=== PATIENT | female | born 1955 | race Caucasian/White ===

== ENCOUNTER 2017-01-05 19:04 | Emergency (ER) | payer MEDICAID | END 2017-01-05 21:07 | disposition home or self-care (01) | LOC: D.ER 19:04 | DX: M79.601 Pain in right arm (principal); W19.XXXA Unspecified fall, initial encounter; Y93.89 Activity, other specified; Y92.89 Other specified places as the place of occurrence of the external cause; J44.9 Chronic obstructive pulmonary disease, unspecified; M50.30 Other cervical disc degeneration, unspecified cervical region; I10 Essential (primary) hypertension; F17.200 Nicotine dependence, unspecified, uncomplicated ==

== ENCOUNTER → 2017-03-18 13:43 | Outpatient (CLI) | payer MEDICAID | END | disposition home or self-care (01) | LOC: D.MAMMO 10:45 | DX: Z12.31 Encounter for screening mammogram for malignant neoplasm of breast (principal) ==

== ENCOUNTER 2018-01-04 15:28 | Emergency (ER) | payer MEDICAID ==
[2018-01-04] MEDS ORDERED: PHENERGAN25 M1 PO (17:34)
[2018-01-04] MEDS ORDERED: TOPAMAX50 MG PO (17:35)
[2018-01-04] MEDS ORDERED: ZESTORETIC 10/11 TAB PO (17:35)
[2018-01-04] MEDS ORDERED: NEURONTIN 400400 MG PO (17:35)
[2018-01-04] MEDS ORDERED: PROAIR HFA8.5 GM INH (17:36)
[2018-01-04] MEDS ORDERED: HYDROCODONE-APA1 TAB PO (17:36)
[2018-01-04] MEDS ORDERED: AMBIEN10 MG PO (17:36)
[2018-01-04] MEDS ORDERED: XANAX0.25 MG PO (17:36)
== END 2018-01-04 16:11 | disposition left against medical advice (07) ==
LOC: D.ER 15:28
DX: R07.81 Pleurodynia (principal); H92.01 Otalgia, right ear; I10 Essential (primary) hypertension; J44.9 Chronic obstructive pulmonary disease, unspecified; F17.200 Nicotine dependence, unspecified, uncomplicated; Y04.2XXA Assault by strike against or bumped into by another person, initial encounter; Y93.89 Activity, other specified; Y92.019 Unspecified place in single-family (private) house as the place of occurrence of the external cause

== ENCOUNTER 2018-01-04 17:28 | Emergency (ER) | payer MEDICAID ==
[~2018-01-04] VITALS: Ht 162.6 cm; Wt 40.9 kg
[2018-01-04 17:32] VITALS: Ht 162.6 cm; Wt 40.9 kg
[2018-01-04] MEDS ORDERED: PHENERGAN25 M1 PO (17:34)
[2018-01-04] MEDS ORDERED: ZESTORETIC 10/11 TAB PO (17:35)
[2018-01-04] MEDS ORDERED: TOPAMAX50 MG PO (17:35)
[2018-01-04] MEDS ORDERED: NEURONTIN 400400 MG PO (17:35)
[2018-01-04] MEDS ORDERED: PROAIR HFA8.5 GM INH (17:36)
[2018-01-04] MEDS ORDERED: AMBIEN10 MG PO (17:36)
[2018-01-04] MEDS ORDERED: XANAX0.25 MG PO (17:36)
[2018-01-04] MEDS ORDERED: HYDROCODONE-APA1 TAB PO (17:36)
[2018-01-04 20:25] VITALS: BP 120/62
== END 2018-01-04 20:29 | disposition home or self-care (01) ==
LOC: D.ER 17:28
DX: R07.81 Pleurodynia (principal); H92.01 Otalgia, right ear; I10 Essential (primary) hypertension; J44.9 Chronic obstructive pulmonary disease, unspecified; Y04.2XXA Assault by strike against or bumped into by another person, initial encounter; Y93.89 Activity, other specified; Y92.019 Unspecified place in single-family (private) house as the place of occurrence of the external cause

== ENCOUNTER → 2018-03-24 19:33 | Outpatient (CLI) | payer MEDICAID ==
[2018-01-04 17:32] VITALS: BMI 15.4
[~2018-03-24 19:33] MED LIST: AMBIEN10 MG PO; HYDROCODONE-APA1 TAB PO; NEURONTIN 400400 MG PO; PHENERGAN25 M1 PO; PROAIR HFA8.5 GM INH; TOPAMAX50 MG PO; XANAX0.25 MG PO; ZESTORETIC 10/11 TAB PO
== END | disposition home or self-care (01) ==
LOC: D.LABREF 19:33
DX: R19.7 Diarrhea, unspecified (principal)

== ENCOUNTER 2018-08-09 14:51 | Inpatient (IN) | payer MEDICARE ==
[~2018-08-09] VITALS: Ht 162.6 cm; Wt 43.5 kg
[2018-08-09] MEDS ORDERED: OMEPRAZOLE20 M1 PO (15:08)
[2018-08-09] MEDS ORDERED: PEPCID AC20 MG PO (15:08)
[2018-08-09] MEDS ORDERED: ASACOL HD800 MG PO (15:09)
[2018-08-09 16:02] LABS: ALBUMIN 2.8 g/dL (3.4-5.0); BILIRUBIN - TOTAL 0.36 mg/dL (0.2-1.3); CALCIUM 9.6 mg/dL (8.5-10.1); PROTEIN - SERUM 8.6 g/dL (6.4-8.2)
[2018-08-09 16:13] LABS: ANION GAP 11.5 mmol/L (8-16); POTASSIUM - SERUM 1.5 mmol/L (3.5-5.1)
[2018-08-09 16:25] LABS: HEMATOCRIT 42.4 % (36.0-48.0); MCH 30.5 pg (26.0-34.0); MCHC 35.4 g/dL (31.0-37.0); MCV 86.2 fL (80.0-100.0); MEAN PLATELET VOLUME 10.3 fL (7.4-10.4); PLATELET COUNT 406 10x3/uL (130-400); RBC 4.92 10x6/uL (4.00-5.40); RDW 12.9 % (11.5-14.5); WBC 22.3 10x3/uL (4.8-10.8)
[2018-08-09 16:58] LABS: EOSINOPHILS 1 % (0-7); LYMPHOCYTES 15 % (15-50); MONOCYTES 6 % (2-11); NEUTROPHILS 77 % (40-80)
[2018-08-09 17:02] LABS: PLATELET ESTIMATE INCREASED
[2018-08-09 17:03] LABS: TEAR DROP CELLS 1+
--- NOTE | 2018-08-09 17:06 | NUR ---
PT C/O POTASSIUM BURNING, RATE DECREASED TO 75ML/HR
--- NOTE | 2018-08-09 17:21 | MORECARE ---
CASE MANAGEMENT DISCHARGE SUMMARY PATIENT: PIETER CONTRERAS UNIT: [id number] ADM DATE: 08/09/18 AGE: 62 : 53 SEX: F ROOM/BED: D.2224 AUTHOR: JUSTUS WALTON PHYSICIAN: REFERRING PHYSICIAN: SRAVAN JAY MD DATE OF SERVICE: 08/09/18 Discharge Plan Patient Name: PIETER CONTRERAS [facility] [facility] 1955 Planned Disposition: Home Anticipated Discharge Date: 08/11/18 Discharge Date: Expected LOS: 2 Initial Reviewer: [email or web address] Initial Review Date: 08/09/2018 Generated: 08/09/18 6:20 pm Patient Name: PIETER CONTRERAS Page 34479 at 1721 All edits/amendments must be made on the electronic document DICTATION DATE: 08/09/181719 REGULATORY AFFAIRS STRATEGY SPECIALIST: MARGARET 08/09/181719 RPT#: [id number] DC DATE: STATUS: ADM IN [facility] [address] [place] [address] END OF REPORT
--- NOTE | 2018-08-09 17:28 | MORECARE ---
CASE MANAGEMENT DISCHARGE SUMMARY PATIENT: PIETER CONTRERAS UNIT: [id number] ADM DATE: 08/09/18 AGE: 62 : 53 SEX: F ROOM/BED: D.2224 AUTHOR: ISABELLE,DOC PHYSICIAN: REFERRING PHYSICIAN: SRAVAN JAY MD DATE OF SERVICE: 08/09/18 Discharge Plan Patient Name: PIETER CONTRERAS Facility: [facility]:[place] : 1955 Planned Disposition: Home Anticipated Discharge Date: 08/11/18 Discharge Date: Expected LOS: 2 Initial Reviewer: [email or web address] Initial Review Date: 08/09/2018 Generated: 08/09/18 6:28 pm DCP- Discharge Planning Updated by [email or web address]: Lamar Robledo on 08/09/18 4:[address] Patient Name: PIETER CONTRERAS Admission Status: ER Accout number: [id number] Admission Date: 08-09-2018 : 1955 Admission Diagnosis: Attending: SRAVAN JAY Current LOS: 1 Anticipated DC Date: 08-11-2018 Planned Disposition: Home Primary Insurance: MEDICARE A & B Discharge Planning Comments: CM met with patient to complete initial dc planning assessment. CM educated patient on the CM role and verbal consent given by patient to complete assessment. Patient lives at home alone and reports she is independent in her care. At discharge patient plans to return home and feels this is a safe discharge. CM discussed availability of home health, rehab services, and medical equipment. Patient denied known discharge needs at this time. CM will continue to follow and will assist as needed with dc plans/needs. Flatbed Truck Driver: Lamar Robledo RN, [facility] DCPIA - Discharge Planning Initial Assessment Updated by [email or web address]: Lamar Robledo on 08/09/18 5:23 pm * Is the patient Alert and Oriented? Yes * How many steps to enter\exit or inside your home? * PCP Dr. Jay * Pharmacy [facility] * Preadmission Environment Home Alone * ADLs Independent * Equipment None * List name and contact numbers for known caregivers / representatives who currently or will assist patient after discharge: [facility] - [phone] * Verbal permission to speak to the caregivers and representatives has been obtained from the patient. Yes * Community resources currently utilized None * Additional services required to return to the preadmission environment? No * Can the patient safely return to the preadmission environment? Yes * Has this patient been hospitalized within the prior 30 days at any hospital? No Last DP export: 08/09/18 4:21 p Patient Name: PIETER CONTRERAS Page [phone] at 1728 All edits/amendments must be made on the electronic document DICTATION DATE: 08/09/181726 HEAD CORRECTION OFFICER: MARGARET 08/09/181726 RPT#: [id number] DC DATE: STATUS: ADM IN [facility] [address] [place] [address] END OF REPORT
--- NOTE | 2018-08-09 17:36 | NUR ---
NS AND K RIDER CONTINUED TO FLOOR
--- NOTE | 2018-08-09 18:14 | NUR ---
PT ARRIVED TO THE UNIT TO ROOM 2224, ORINETATED TO ROOM CL IN REACH NO NEEDS EXPRESSED
--- NOTE | 2018-08-09 18:45 | NUR ---
I have reviewed this patient and I concur with the Shift Assessment completed by the Licensed Practical Nurse today this shift.
[2018-08-09 20:00] VITALS: BP 116/63
--- NOTE | 2018-08-09 20:30 | NUR ---
ADMISSION ASSESSMENT COMPLETE AND HISTORY REVIEWED. KCL RIDERS INFUSING. NO NEEDS. WILL CONTINUE TO MONITOR.
[2018-08-09 21:32] LABS: CALC OSMOLALITY 269 mosm/kg (275-300); CALCIUM 8.1 mg/dL (8.5-10.1); CARBON DIOXIDE 31.4 mmol/L (21.0-32.0); CHLORIDE - SERUM 95 mmol/L (98-107); GLUCOSE 108 mg/dL (74-106); SODIUM 131 mmol/L (136-145); UREA NITROGEN 29 mg/dL (7-18)
[2018-08-09 21:35] LABS: CREATININE - SERUM 0.7 mg/dL (0.6-1.3); eGFR NON AFRICAN AMERICAN 89 mL/min (90-120)
[2018-08-09 21:36] LABS: POTASSIUM - SERUM 1.6 mmol/L (3.5-5.1)
--- NOTE | 2018-08-09 22:20 | NUR ---
REDRAW POTASSIUM 1.6 - GIVING KCL 10 MEQ RIDER Q1H X6. PUT IN ORDER PER ELECTROLYTE PROTOCOL. PT RECEIVING 6 NOW.
[2018-08-09 23:18] VITALS: BP 107/40; BMI 14.1
[2018-08-10 04:00] VITALS: BP 118/62
[2018-08-10 07:06] LABS: CALCIUM 8.1 mg/dL (8.5-10.1); CARBON DIOXIDE 29.2 mmol/L (21.0-32.0); CHLORIDE - SERUM 97 mmol/L (98-107); CREATININE - SERUM 0.8 mg/dL (0.6-1.3); GLUCOSE 90 mg/dL (74-106); MAGNESIUM - SERUM 2.2 mg/dL (1.8-2.4); SODIUM 135 mmol/L (136-145); eGFR NON AFRICAN AMERICAN 76 mL/min (90-120)
[2018-08-10 07:48] LABS: CALC OSMOLALITY 272 mosm/kg (275-300); UREA NITROGEN 21 mg/dL (7-18)
--- NOTE | 2018-08-10 08:46 | NUR ---
PT RESTING IN BED. NO ACUTE DISTRESS NOTED. PT NOTED TO BE DROWSY. BP 110/60 AT THIS TIME. SALINE LOC TO LEFT WRIST INTACT AND PATENT. DENIES PAIN AT THIS TIME. DENIES FURTHER NEEDS PRESENTLY. CL WITHIN REACH. ENCORUAGED TO CALL WITH NEEDS. CONTINUE POC
[2018-08-10 09:31] VITALS: BP 97/56
[2018-08-10 13:00] VITALS: BP 109/52
[2018-08-10 14:58] VITALS: BMI 14.0
[2018-08-10 18:57] VITALS: BP 104/48
[2018-08-10 20:00] VITALS: BP 118/52
[2018-08-11 05:24] LABS: BASOPHILS 0.1 % (0-2); EOSINOPHILS 0.7 % (0-7); IMMATURE GRANULOCYTES 0.9 % (0-5); LYMPHOCYTES 11.5 % (15-50); MCHC 33.9 g/dL (31.0-37.0); MEAN PLATELET VOLUME 9.6 fL (7.4-10.4); MONOCYTES 6.4 % (2-11); NEUTROPHILS 80.4 % (40-80); RDW 13.4 % (11.5-14.5)
[2018-08-11 05:38] LABS: HEMATOCRIT 33.3 % (36.0-48.0); HEMOGLOBIN 11.3 g/dL (12-16); MCV 88.3 fL (80.0-100.0); PLATELET COUNT 304 10x3/uL (130-400); RBC 3.77 10x6/uL (4.00-5.40); WBC 16.3 10x3/uL (4.8-10.8)
[2018-08-11 05:44] LABS: CALC OSMOLALITY 276 mosm/kg (275-300); CALCIUM 7.9 mg/dL (8.5-10.1); CARBON DIOXIDE 27.9 mmol/L (21.0-32.0); CHLORIDE - SERUM 103 mmol/L (98-107); CREATININE - SERUM 0.6 mg/dL (0.6-1.3); GLUCOSE 102 mg/dL (74-106); SODIUM 138 mmol/L (136-145); UREA NITROGEN 16 mg/dL (7-18); eGFR NON AFRICAN AMERICAN > 90 mL/min (90-120)
[2018-08-11 06:20] LABS: POTASSIUM - SERUM 2.8 mmol/L (3.5-5.1)
--- NOTE | 2018-08-11 07:40 | NUR ---
PT RESTING IN BED. FAMILY AT BEDSIDE. RESP EVEN AND UNLABORED. 02 @ 2L NC IN PLACE. DENIES PAIN AT THIS TIME. IV TO LEFT WRIST WITH PROCALAMINE @ 50ML/HR INFUSING VIA PUMP. SITE WITHOUT REDNESS OR EDEMA. DENIES FURTHER NEEDS AT THIS TIME. CL WITHIN REACH. ENCOURAGED TO CALL WITH NEEDS. CONTINUE POC
[2018-08-11 09:36] VITALS: BP 100/52
[2018-08-11 14:16] VITALS: BP 195/82
[2018-08-11 18:04] VITALS: BP 106/55
[2018-08-11 20:00] VITALS: BP 140/68
--- NOTE | 2018-08-11 20:00 | NUR ---
ASSESSMENT PER FLOWSHEET. PCXR DONE AT 1930. IV PATENT LEFT WRIST WITH PROCAL AT 50CC'S/HR AND ANTBIOTIC OF ZITHROMAX HANGING. FAMILY AT BEDSIDE. O2 ON AT 2 L/M PER NC.
--- NOTE | 2018-08-11 21:15 | NUR ---
MEDS GIVEN PO WITH SODA. MEDS PER JUL. SR UP X2 CALL LIGHT WITHIN EACH. UP WITH HELP TO BR VOIDS. ASSISTED BACK TO BED PATIENT VERY WEAK.
--- NOTE | 2018-08-11 23:30 | NUR ---
VS TAKEN BY SHEET ROCK FINISHER. INFF=731.9. NOTIFIED DR. JAY ORDERS REC'D.
--- NOTE | 2018-08-11 23:45 | NUR ---
CHIEF DEPUTY CLERK/BAILIFF HERE FLU SWAB DONE BY NURSE. LAB DRAWN FOR BLOOD CULTURES X2.
[2018-08-12] VITALS: BP 115/54
--- NOTE | 2018-08-12 00:15 | NUR ---
IN AND OUT CATH DONE UNDER OVERHEAD CRANE OPERATOR. UA SPECIMEN OBTAINED AND SENT TO LAB. FOR CULTURE. TYLENOL 650 MG PO GIVEN FOR FEVER ELEVATION. T=103 NOW.
--- NOTE | 2018-08-12 00:55 | NUR ---
FLU RESULTS CAME BACK (-). PRIOR CXR SHOWS SOME INPROVEMENT.
--- NOTE | 2018-08-12 03:27 | NUR ---
RESTING AT THIS TIME. WILL RECHECK VITAL SIGNS IE TEMP AT 0400
[2018-08-12 04:00] VITALS: BP 93/52
[2018-08-12 07:10] LABS: BASOPHILS 0.2 % (0-2); EOSINOPHILS 2.2 % (0-7); HEMATOCRIT 33.2 % (36.0-48.0); IMMATURE GRANULOCYTES 1.3 % (0-5); LYMPHOCYTES 18.2 % (15-50); MCH 29.6 pg (26.0-34.0); MCHC 33.1 g/dL (31.0-37.0); MCV 89.5 fL (80.0-100.0); MEAN PLATELET VOLUME 9.7 fL (7.4-10.4); MONOCYTES 8.2 % (2-11); NEUTROPHILS 69.9 % (40-80); PLATELET COUNT 260 10x3/uL (130-400); RBC 3.71 10x6/uL (4.00-5.40); RDW 13.7 % (11.5-14.5)
[2018-08-12 07:12] LABS: WBC 11.5 10x3/uL (4.8-10.8)
[2018-08-12 07:26] LABS: CALCIUM 8.4 mg/dL (8.5-10.1); CARBON DIOXIDE 26.7 mmol/L (21.0-32.0); CHLORIDE - SERUM 106 mmol/L (98-107); CREATININE - SERUM 0.5 mg/dL (0.6-1.3); GLUCOSE 113 mg/dL (74-106); SODIUM 138 mmol/L (136-145); eGFR NON AFRICAN AMERICAN > 90 mL/min (90-120)
[2018-08-12 07:27] LABS: CALC OSMOLALITY 279 mosm/kg (275-300); POTASSIUM - SERUM 4.1 mmol/L (3.5-5.1); UREA NITROGEN 22 mg/dL (7-18)
--- NOTE | 2018-08-12 07:50 | NUR ---
PT LYING IN BED, EYES CLSOED EVEN RISE AND FALL OF CHEST NO SIGNS OF LABORED BREATHING. BED IN LOW POSITION CL IN REACH PT FAMILY AT BEDSIDE, CONTINUE WITH PLAN OF CARE
[2018-08-12 08:55] VITALS: BP 96/50
--- NOTE | 2018-08-12 12:15 | NUR ---
NUTRITION F/U PT SLEEPING, ONLY ~ 25% INTAKE MEALS. ENSURE WITH MEALS. PROCALAMINE @ 50 CC/HR. WILL CONTINUE TO PROVIDE ENSURE, DIET. MONITOR PO INTAKE. RD FOLLOWING
--- NOTE | 2018-08-12 13:18 | NUR ---
PT SITTING UP IN BED STATES THAT SHE IS COLD AND SHIVERING. PT TEMP IS 99.1 PT REQUESTED TO HAVE TYLENOL, ADMINISTERED PRN TYLENOL ALONG WITH SCHEDULED MEDS PER JUL. CONTINUE WITH PLAN OF CARE
[2018-08-12 13:38] VITALS: BP 126/32
--- NOTE | 2018-08-12 15:41 | NUR ---
WENT TO ADMINISTER 3 [place] MEDS PER JUL, PT EXTREMELY SLEEPY, HAD TO SHAKE PT TO WAKE UP AND OPEN HER EYES TO TAKE MEDICATIONS, PT, PT GRANDDAUGHTER IN ROOM STATED PT WAS SLEEPY WELL AFTER TYLENOL YESTERDAY AND SLEPT ALL NIGHT, PT ABLE TO TAKE MDS AND SWALLOW EACH, CHECKED PTS MOUTH FOR PILLS WITH FINGER SWOOP, CONTINUE WITH PLAN OF CARE
[2018-08-12 16:28] VITALS: BP 106/31
--- NOTE | 2018-08-12 17:13 | NUR ---
PT LYING IN BED ASLEEP, FAMILY AT BEDISDE, PT IS EASILY AWAKENED AND GOES RIGHT BACK TO SLEEP, NO SIGNS OF DISTRESS CONTINUE WITH PLAN OF CARE
--- NOTE | 2018-08-12 18:44 | NUR ---
PT SITTING UP IN BED EATING WITH GRANDCHILD AT BEDSIDE, MORE AWAKE THAN AT LUNCH, NO NEEDS VOICED, CONTINUE WITH PLAN OF CARE
[2018-08-12 20:00] VITALS: BP 107/58
--- NOTE | 2018-08-12 20:00 | NUR ---
ASSESSMENT PER FLOWSHEET. IV PATENT LEFT WRIST OF PROCAL AT 50CC'S/HR. O2 ON 2L/M PER NC. NO RESPIRATORY DISTRESS. FAMILY MEMBER AT BEDSIDE. SR UP X2 CALL LIGHT WITHIN REACH. EYES CLOSED RESPIRATIONS WITH EASE AND UNLABORED. AROUSES EASILY TO VERBAL STIMULI.
--- NOTE | 2018-08-12 21:30 | NUR ---
MEDS GIVEN PER MAR. EILEEN MILLAN DUE TO INCREASED DROWSINESS.
--- NOTE | 2018-08-13 00:43 | NUR ---
EYES CLOSED ESPIRATIONS WITH EASE AND UNLABORED.
--- NOTE | 2018-08-13 03:59 | NUR ---
UP WITH HELP TO BR VOIDS WELL. ASSISTED BACK TO BED.SR UP X2 CALL LIGHT WITHIN REACH.
[2018-08-13 04:00] VITALS: BP 127/65
[2018-08-13 04:18] LABS: BASOPHILS 0.2 % (0-2); EOSINOPHILS 2.7 % (0-7); HEMATOCRIT 32.7 % (36.0-48.0); HEMOGLOBIN 10.8 g/dL (12-16); IMMATURE GRANULOCYTES 1.4 % (0-5); LYMPHOCYTES 14.2 % (15-50); MCH 29.8 pg (26.0-34.0); MCV 90.3 fL (80.0-100.0); MEAN PLATELET VOLUME 9.3 fL (7.4-10.4); NEUTROPHILS 74.5 % (40-80); PLATELET COUNT 276 10x3/uL (130-400); RBC 3.62 10x6/uL (4.00-5.40); RDW 14.1 % (11.5-14.5); WBC 10.6 10x3/uL (4.8-10.8)
[2018-08-13 04:27] LABS: CALC OSMOLALITY 273 mosm/kg (275-300); CALCIUM 8.4 mg/dL (8.5-10.1); CARBON DIOXIDE 28.1 mmol/L (21.0-32.0); CHLORIDE - SERUM 104 mmol/L (98-107); CREATININE - SERUM 0.6 mg/dL (0.6-1.3); GLUCOSE 105 mg/dL (74-106); POTASSIUM - SERUM 3.7 mmol/L (3.5-5.1); SODIUM 136 mmol/L (136-145); UREA NITROGEN 17 mg/dL (7-18); eGFR NON AFRICAN AMERICAN > 90 mL/min (90-120)
[2018-08-13 10:11] VITALS: BP 99/49
[2018-08-13 13:37] VITALS: BP 122/65
[2018-08-13 17:34] VITALS: BP 102/54
--- NOTE | 2018-08-13 18:51 | NUR ---
I have reviewed this patient and I concur with the Shift Assessment completed by the Licensed Practical Nurse today this shift.
--- NOTE | 2018-08-13 19:45 | NUR ---
PT SITTING UP IN BED W/O DISTRESS. BREATHING SHALLOW, SOB W/ EXERTION. O2 2L/NC. ASSISTED PT UP TO BATHROOM W/ MINIMAL ASSIST. HOLDING QHS AMBIEN BC PT IS DROWSY. BOTTOM IS REDDENED. IV RIGHT FA SL. IV LEFT FA INFUSING PROCAL @ 50 AND NS @ 10. SCDS ON. FALL PRECAUTIONS IN PLACE. BED ALARM ON. CL IN REACH, WILL CONT TO MONITOR
[2018-08-13 20:00] VITALS: BP 100/56
[2018-08-14] VITALS: BP 133/62
--- NOTE | 2018-08-14 00:15 | NUR ---
TEMP 100.2. GAVE TYLENOL ORDERED. RECHECKED TEMP HOUR LATER AND TEMP 97.6
--- NOTE | 2018-08-14 03:00 | NUR ---
ASSISTED PT UP TO BATHROOM FOURTH TIME TONIGHT. PT APPEARS TO BE WEAKER THAN BEFORE. MODERATE ASSIST NEEDED TO BATHROOM AND PT HARDLY ABLE TO STAND UP TO GET BACK TO BED WHEREAS PT PREVIOUSLY NEEDED STAND BY ASSIST FOR BALANCE. BEDSIDE COMMODE PROVIDED. PT HAD TO GET UP TO BATHROOM ONCE MORE AND TOLERATED GETTING TO BEDSIDE COMMODE WELL. WILL CONT TO MONITOR
[2018-08-14 04:00] VITALS: BP 105/58
[2018-08-14 04:24] LABS: BASOPHILS 0.1 % (0-2); EOSINOPHILS 1.4 % (0-7); HEMATOCRIT 30.2 % (36.0-48.0); HEMOGLOBIN 10.1 g/dL (12-16); IMMATURE GRANULOCYTES 1.1 % (0-5); LYMPHOCYTES 7.8 % (15-50); MCH 30.1 pg (26.0-34.0); MCHC 33.4 g/dL (31.0-37.0); MCV 89.9 fL (80.0-100.0); MEAN PLATELET VOLUME 9.4 fL (7.4-10.4); MONOCYTES 5.1 % (2-11); NEUTROPHILS 84.5 % (40-80); PLATELET COUNT 303 10x3/uL (130-400); RBC 3.36 10x6/uL (4.00-5.40); RDW 14.3 % (11.5-14.5)
[2018-08-14 04:38] LABS: CALC OSMOLALITY 276 mosm/kg (275-300); CALCIUM 8.3 mg/dL (8.5-10.1); CARBON DIOXIDE 25.4 mmol/L (21.0-32.0); CHLORIDE - SERUM 104 mmol/L (98-107); CREATININE - SERUM 0.5 mg/dL (0.6-1.3); GLUCOSE 110 mg/dL (74-106); POTASSIUM - SERUM 3.6 mmol/L (3.5-5.1); SODIUM 137 mmol/L (136-145); UREA NITROGEN 17 mg/dL (7-18); eGFR NON AFRICAN AMERICAN > 90 mL/min (90-120)
[2018-08-14 09:18] VITALS: BP 111/49
[2018-08-14 13:03] VITALS: BP 111/53
[2018-08-14 16:00] VITALS: BP 122/66
[2018-08-14 16:07] VITALS: Ht 162.6 cm; Wt 43.5 kg
--- NOTE | 2018-08-14 18:45 | NUR ---
I have reviewed this patient and I concur with the Shift Assessment completed by the Licensed Practical Nurse today this shift.
--- NOTE | 2018-08-14 19:00 | NUR ---
REPORT RECEIVED AND CARE OF PT ASSUMED. PT LYING IN HIGH CID'S POSITION VISITING WITH FAMILY MEMBERS. IV IN LEFT FA PATENT WITH PROCAL INFUSING AT 50 ML / HR. AND NS INFUSING AT 10 ML / HR. BED ALARM IN USE FOR SAFETY. SCD'S IN PLACE. WILL MONITOR FOR NEEDS.
[2018-08-14 20:00] VITALS: BP 104/61
--- NOTE | 2018-08-14 21:30 | NUR ---
HS MEDICATIONS GIVEN. HELD AMBIEN PT LETHARGIC ALREADY. WILL CONTINUE TO MONITOR FOR NEEDS.
[2018-08-15] VITALS: BP 146/74
[2018-08-15 03:00] VITALS: BP 119/63
[2018-08-15 05:09] LABS: BASOPHILS 0.3 % (0-2); EOSINOPHILS 2.8 % (0-7); HEMATOCRIT 29.3 % (36.0-48.0); HEMOGLOBIN 9.6 g/dL (12-16); IMMATURE GRANULOCYTES 2.4 % (0-5); LYMPHOCYTES 24.5 % (15-50); MCH 29.4 pg (26.0-34.0); MCHC 32.8 g/dL (31.0-37.0); MCV 89.9 fL (80.0-100.0); MEAN PLATELET VOLUME 9.6 fL (7.4-10.4); MONOCYTES 16.5 % (2-11); NEUTROPHILS 53.5 % (40-80); PLATELET COUNT 295 10x3/uL (130-400); RBC 3.26 10x6/uL (4.00-5.40); RDW 14.5 % (11.5-14.5)
[2018-08-15 05:13] LABS: WBC 7.5 10x3/uL (4.8-10.8)
[2018-08-15 05:18] LABS: CALC OSMOLALITY 281 mosm/kg (275-300); CALCIUM 8.4 mg/dL (8.5-10.1); CARBON DIOXIDE 24.2 mmol/L (21.0-32.0); CHLORIDE - SERUM 109 mmol/L (98-107); CREATININE - SERUM 0.4 mg/dL (0.6-1.3); GLUCOSE 94 mg/dL (74-106); SODIUM 141 mmol/L (136-145); UREA NITROGEN 16 mg/dL (7-18); eGFR NON AFRICAN AMERICAN > 90 mL/min (90-120)
--- NOTE | 2018-08-15 08:51 | NUR ---
PT SITTING UP IN BED EATING BREAKFAST, GRANDSON AT BEDSIDE, PER PT, SHE IS FEELING A LOT BETTER TODAY THAN SHE HAD BEEN, ADMINISTERED MEDS PER MAR, NO S/S OF DISTRESS, CL IN REACH ASSUME AND CONTINUE PLAN OF CARE
[2018-08-15 14:14] VITALS: BP 113/56
--- NOTE | 2018-08-15 15:18 | NUR ---
PT SITTING UP IN BED, GRANDSON AND DAUGHTER AT BEDSIDE, NO NEEDS VOICED, ASSISTED PT TO BSC. CL IN REACH CONTINUE WITH PLAN OF CARE
--- NOTE | 2018-08-15 15:43 | NUR ---
I have reviewed this patient and I concur with the Shift Assessment completed by the Licensed Practical Nurse today this shift.
[2018-08-15 17:53] VITALS: BP 113/54
--- NOTE | 2018-08-15 19:00 | NUR ---
REPORT RECEIVED AND CARE OF PT ASSUMED. PT LYING IN HIGH CID'S POSITION WITH EYES CLOSED. IV IN LEFT FA PATENT WITH PROCAL INFUSING AT 50 ML / HR; AND NS INFUSING AT 10 ML / HR. WILL MONITOR FOR NEEDS.
[2018-08-15 20:00] VITALS: BP 110/53
--- NOTE | 2018-08-15 20:53 | NUR ---
HS MEDICATIONS GIVEN. WILL CONTINUE TO MONITOR FOR NEEDS. HELD AMBIEN PT STILL LETHARGIC.
[2018-08-16] VITALS: BP 114/62
[2018-08-16 04:00] VITALS: BP 119/68
[2018-08-16 09:45] VITALS: BP 128/66
--- NOTE | 2018-08-16 10:34 | NUR ---
PT SITTING UP IN BED, STATED SHE FEELS BETTER, BED IN LOW POSITION, CL IN REACH NO FAMILY AT BEDSIDE, CONTINUE WITH PLAN OF CARE
[2018-08-16 13:46] VITALS: BP 120/89
--- NOTE | 2018-08-16 15:43 | NUR ---
I have reviewed this patient and I concur with the Shift Assessment completed by the Licensed Practical Nurse today this shift.
[2018-08-16 17:35] VITALS: BP 134/66
--- NOTE | 2018-08-16 19:00 | NUR ---
REPORT RECEIVED AND CARE OF PT ASSUMED. PT RESTING IN LOW CID'S POSITION WITH EYES CLOSED. IV IN RIGHT FA PATENT WITH PROCAL INFUSING AT 50 ML / HR AND NS INFUSING AT 10 ML / HR. SCD'S IN USE ON BLE. WILL MONITOR FOR NEEDS. CALL LIGHT WITHIN REACH.
[2018-08-16 20:00] VITALS: BP 134/70
--- NOTE | 2018-08-16 20:34 | NUR ---
HS MEDICATIONS GIVEN. WILL CONTINUE TO MONITOR FOR NEEDS.
--- NOTE | 2018-08-16 21:20 | NUR ---
COLLECTED SPUTUM SAMPLE FOR ORDERED CULTURE AND DELIVERED TO LAB.
[2018-08-17] VITALS: BP 127/64
--- NOTE | 2018-08-17 02:30 | NUR ---
ASSISTED PT WITH SPONGE BATH AND CHANGED ALL LINENS AND GOWN. POSITIONED IN BED FOR COMFORT AND RE-PLACED SCD'S. CALL LIGHT WITHIN REACH.
[2018-08-17 04:00] VITALS: BP 134/79
[2018-08-17 04:58] LABS: BASOPHILS 0.4 % (0-2); EOSINOPHILS 2.2 % (0-7); HEMATOCRIT 31.3 % (36.0-48.0); HEMOGLOBIN 10.2 g/dL (12-16); IMMATURE GRANULOCYTES 2.4 % (0-5); LYMPHOCYTES 30.3 % (15-50); MCH 29.8 pg (26.0-34.0); MCHC 32.6 g/dL (31.0-37.0); MCV 91.5 fL (80.0-100.0); MEAN PLATELET VOLUME 8.9 fL (7.4-10.4); MONOCYTES 14.4 % (2-11); NEUTROPHILS 50.3 % (40-80); PLATELET COUNT 345 10x3/uL (130-400); RBC 3.42 10x6/uL (4.00-5.40); RDW 15.1 % (11.5-14.5); WBC 7.1 10x3/uL (4.8-10.8)
[2018-08-17 05:08] LABS: CALC OSMOLALITY 277 mosm/kg (275-300); CALCIUM 8.8 mg/dL (8.5-10.1); CARBON DIOXIDE 27.3 mmol/L (21.0-32.0); CHLORIDE - SERUM 106 mmol/L (98-107); CREATININE - SERUM 0.4 mg/dL (0.6-1.3); GLUCOSE 90 mg/dL (74-106); POTASSIUM - SERUM 4.2 mmol/L (3.5-5.1); SODIUM 138 mmol/L (136-145); UREA NITROGEN 17 mg/dL (7-18); eGFR NON AFRICAN AMERICAN > 90 mL/min (90-120)
[2018-08-17 08:55] VITALS: BP 161/78
--- NOTE | 2018-08-17 09:52 | MORECARE ---
CASE MANAGEMENT DISCHARGE SUMMARY PATIENT: PIETER CONTRERAS UNIT: [id number] ADM DATE: 08/09/18 AGE: 62 : 53 SEX: F ROOM/BED: D.2224 AUTHOR: ISABELLE,DOC PHYSICIAN: REFERRING PHYSICIAN: SRAVAN JAY MD DATE OF SERVICE: 08/17/18 Discharge Plan Patient Name: PIETER CONTRERAS Facility[facility]:[place] : 1955 Planned Disposition: Home Anticipated Discharge Date: 08/11/18 Discharge Date: Expected LOS: 2 Initial Reviewer: [email or web address] Initial Review Date: 08/09/2018 Generated: 08/17/18 10:52 am Comments DCP- Discharge Planning Updated by [email or web address]: Connie Lamar on 08/17/18 8:[address] Received order for discharge. Patient states her daughter is picking her up for discharge. States her adult grand daughter is going to be staying with her. Declines need for home health. She is wearing oxygen at 2 L NC and she does not have oxygen at home. I will have RT do a walk test to assess for home oxygen needs. RT called. CM will continue to follow and assist with discharge planning/needs. DCP- Discharge Planning Updated by [email or web address]: Lamar Robledo on 08/09/18 4:[address] Patient Name: PIETER CONTRERAS Admission Status: ER Accout number: [id number] Admission Date: 08-09-2018 : 1955 Admission Diagnosis: Attending: SRAVAN JAY Current LOS: 1 Anticipated DC Date: 08-11-2018 Planned Disposition: Home Primary Insurance: MEDICARE A & B Discharge Planning Comments: CM met with patient to complete initial dc planning assessment. CM educated patient on the CM role and verbal consent given by patient to complete assessment. Patient lives at home alone and reports she is independent in her care. At discharge patient plans to return home and feels this is a safe discharge. CM discussed availability of home health, rehab services, and medical equipment. Patient denied known discharge needs at this time. CM will continue to follow and will assist as needed with dc plans/needs. Circular Knitter Helper: Lamar Robledo RN, [facility] DCPIA - Discharge Planning Initial Assessment Updated by [email or web address]: Lamar Robledo on 08/09/18 5:23 pm * Is the patient Alert and Oriented? Yes * How many steps to enter\exit or inside your home? * PCP Dr. Jay * Pharmacy [facility] on [facility] * Preadmission Environment Home Alone * ADLs Independent * Equipment None * List name and contact numbers for known caregivers / representatives who currently or will assist patient after discharge: Yu Moreno [phone] * Verbal permission to speak to the caregivers and representatives has been obtained from the patient. Yes * Community resources currently utilized None * Additional services required to return to the preadmission environment? No * Can the patient safely return to the preadmission environment? Yes * Has this patient been hospitalized within the prior 30 days at any hospital? No Coverage Notice Reviewer: [id number] Tiffanie Lamar Notice Issued Date-Time: 08/17/2018 9:45 Notice Type: IM Discharge Notice Notice Delivered To: Patient Relationship to Patient: Self Academic Hospitalist Name: Delivery Method: HAND - Hand Delivered Meseret Days: Prior Verbal Notification: Recipient Understood Notice: Yes Recipient Signature: Yes Med Rec Note Co-signed by Attending: Coverage Notice Comment: IMM explained, signed, given, copy placed in MR Last DP export: 08/09/18 4:28 p Patient Name: PIETER CONTRERAS Page [id number] at 0952 All edits/amendments must be made on the electronic document DICTATION DATE: 08/17/18950 TIN POURER: MARGARET 08/17/18950 RPT#: [id number] DC DATE: STATUS: ADM IN [facility] [address] [place] [address] END OF REPORT
--- NOTE | 2018-08-17 11:05 | NUR ---
CALLED [facility] TO [facility] ON [facility] SPOKE TO DANIA PHARMACIST STATED GENERIC BRAND IS ALL THEY CARRIED AND FOR 90 TABS IT WAS $1.25 WITH HER INSURANCE AND AND THEY FILL IT BY THE MONTH , SPOKE WITH RAUDEL DONOVAN AND SHE WAS OK WITH GENERIC BRAND.SPOKE WITH JEISON SORENSEN CM .JEISON EATON INFORMED ME THAT SHE SPOKE WITH THE PATIENT AND SHE WILL PICK IT UP AT [facility].
[2018-08-17] MEDS ORDERED: ENTOCORT EC3 MG PO (11:25)
[2018-08-17] MEDS ORDERED: QUESTRAN LIG1 PACKET PO (11:26)
[2018-08-17] MEDS ORDERED: IMODIUM2 MG PO ×2 (11:27→11:28)
--- NOTE | 2018-08-18 07:17 | MORECARE ---
CASE MANAGEMENT DISCHARGE SUMMARY PATIENT: PIETER CONTRERAS UNIT: [id number] ADM DATE: 08/09/18 AGE: 62 : 51 SEX: F ROOM/BED: D.2224 AUTHOR: ISABELLE,DOC PHYSICIAN: REFERRING PHYSICIAN: SRAVAN JAY MD DATE OF SERVICE: 08/18/18 Discharge Plan Patient Name: PIETER CONTRERAS Facility: [facility] : 1955 Planned Disposition: Home Anticipated Discharge Date: 08/11/18 Discharge Date: 08/17/2018 Expected LOS: 2 Initial Reviewer: [email or web address] Initial Review Date: 08/09/2018 Generated: 08/18/18 8:17 am Comments DCP- Discharge Planning Updated by [email or web address]: Connie Lamar on 08/17/18 8:[address] Received order for discharge. Patient states her daughter is picking her up for discharge. States her adult grand daughter is going to be staying with her. Declines need for home health. She is wearing oxygen at 2 L NC and she does not have oxygen at home. I will have RT do a walk test to assess for home oxygen needs. RT called. CM will continue to follow and assist with discharge planning/needs. DCP- Discharge Planning Updated by [email or web address]: Lamar Robledo on 08/09/18 4:[address] Patient Name: PIETER CONTRERAS Admission Status: ER Accout number: [id number] Admission Date: 08-09-2018 : 1955 Admission Diagnosis: Attending: SRAVAN JAY Current LOS: 1 Anticipated DC Date: 08-11-2018 Planned Disposition: Home Primary Insurance: MEDICARE A & B Discharge Planning Comments: CM met with patient to complete initial dc planning assessment. CM educated patient on the CM role and verbal consent given by patient to complete assessment. Patient lives at home alone and reports she is independent in her care. At discharge patient plans to return home and feels this is a safe discharge. CM discussed availability of home health, rehab services, and medical equipment. Patient denied known discharge needs at this time. CM will continue to follow and will assist as needed with dc plans/needs. Data Security Consultant: Lamar Robledo RN, [facility] DCPIA - Discharge Planning Initial Assessment Updated by [id number]: Lamar Robledo on 08/09/18 5:23 pm * Is the patient Alert and Oriented? Yes * How many steps to enter\exit or inside your home? * PCP Dr. Jay * Pharmacy [facility] on [facility] * Preadmission Environment Home Alone * ADLs Independent * Equipment None * List name and contact numbers for known caregivers / representatives who currently or will assist patient after discharge: Yu Moreno [phone] * Verbal permission to speak to the caregivers and representatives has been obtained from the patient. Yes * Community resources currently utilized None * Additional services required to return to the preadmission environment? No * Can the patient safely return to the preadmission environment? Yes * Has this patient been hospitalized within the prior 30 days at any hospital? No Coverage Notice Reviewer: [id number] Tiffanie Lamar Notice Issued Date-Time: 08/17/2018 9:45 Notice Type: IM Discharge Notice Notice Delivered To: Patient Relationship to Patient: Self Intake Specialist Name: Delivery Method: HAND - Hand Delivered Meseret Days: Prior Verbal Notification: Recipient Understood Notice: Yes Recipient Signature: Yes Med Rec Note Co-signed by Attending: Coverage Notice Comment: IMM explained, signed, given, copy placed in MR Last DP export: 08/17/18 8:52 a Patient Name: PIETER CONTRERAS Page 39670 at 0717 All edits/amendments must be made on the electronic document DICTATION DATE: 08/18/18716 ECMO SPECIALIST: MARGARET 08/18/18716 RPT#: [id number] DC DATE:08/17/18 STATUS: DIS IN [facility] [address] [place] [address] END OF REPORT
== END 2018-08-17 13:25 | disposition home or self-care (01) | DRG 193 ==
LOC: D.ER 14:51 → D.EDHOLD 16:39 → D.MS 16:39
PROVIDERS: Emergency Medicine; Family Medicine; Internal Medicine Gastroenterology; ADMIT Family Medicine; ATTEND Family Medicine
DX: J18.9 Pneumonia, unspecified organism (principal); E43 Unspecified severe protein-calorie malnutrition; E87.1 Hypo-osmolality and hyponatremia; Z68.1 Body mass index [BMI] 19.9 or less, adult; E87.6 Hypokalemia; I10 Essential (primary) hypertension; J44.9 Chronic obstructive pulmonary disease, unspecified; J45.909 Unspecified asthma, uncomplicated

== ENCOUNTER 2018-10-16 08:00 | Outpatient (CLI) | payer MEDICARE ==
[~2018-10-16 08:00] MED LIST changes: +ASACOL HD800 MG PO; +ENTOCORT EC3 MG PO; +IMODIUM2 MG PO; +OMEPRAZOLE20 M1 PO; +PEPCID AC20 MG PO; +QUESTRAN LIG1 PACKET PO
[2018-10-16 08:55] LABS: BASOPHILS 0.3 % (0-2); EOSINOPHILS 0.1 % (0-7); HEMATOCRIT 41.2 % (36.0-48.0); IMMATURE GRANULOCYTES 0.8 % (0-5); LYMPHOCYTES 29.7 % (15-50); MCH 31.3 pg (26.0-34.0); MEAN PLATELET VOLUME 9.9 fL (7.4-10.4); MONOCYTES 15.9 % (2-11); NEUTROPHILS 53.2 % (40-80); RBC 4.48 10x6/uL (4.00-5.40); RDW 13.8 % (11.5-14.5); WBC 9.1 10x3/uL (4.8-10.8)
[2018-10-16 09:06] LABS: PLATELET COUNT 252 10x3/uL (130-400)
[2018-10-16 09:08] LABS: CALC OSMOLALITY 269 mosm/kg (275-300); CALCIUM 9.8 mg/dL (8.5-10.1); CHLORIDE - SERUM 99 mmol/L (98-107); CREATININE - SERUM 0.8 mg/dL (0.6-1.3); GLUCOSE 100 mg/dL (74-106); POTASSIUM - SERUM 3.5 mmol/L (3.5-5.1); SODIUM 134 mmol/L (136-145); UREA NITROGEN 18 mg/dL (7-18); eGFR NON AFRICAN AMERICAN 76 mL/min (90-120)
[2018-10-22 07:39] VITALS: BMI 16.6
== END 2018-10-16 08:01 | disposition home or self-care (01) ==
LOC: D.OPS 08:00 → D.PAN 10-21 09:00 → D.OPS 10-21 09:00 → EDSTATUS 10-21 09:00 → D.OPS 10-21 09:30
PROVIDERS: ATTEND Orthopaedic Surgery
DX: G56.02 Carpal tunnel syndrome, left upper limb (principal); Z01.812 Encounter for preprocedural laboratory examination; Z53.9 Procedure and treatment not carried out, unspecified reason

== ENCOUNTER 2018-10-22 07:00 | Day surgery (SDC) | payer MEDICARE ==
[~2018-10-22] VITALS: Ht 162.6 cm; Wt 44.0 kg
[2018-10-22] MEDS ORDERED: ULTRAM50 MG PO (07:37)
[2018-10-22 07:39] VITALS: BP 93/52; Ht 162.6 cm; Wt 44.0 kg
== END 2018-10-22 12:10 | disposition home or self-care (01) ==
LOC: D.OPS 07:00
PROVIDERS: ATTEND Orthopaedic Surgery
DX: G56.02 Carpal tunnel syndrome, left upper limb (principal); Z01.812 Encounter for preprocedural laboratory examination

== ENCOUNTER 2020-02-06 13:36 | Emergency (ER) | payer MEDICARE ==
[~2020-02-06] VITALS: Ht 162.6 cm; Wt 45.5 kg
[~2020-02-06 13:36] MED LIST changes: +ULTRAM50 MG PO
[2020-02-06 13:43] VITALS: Ht 162.6 cm; Wt 45.5 kg
[2020-02-06] MEDS ORDERED: SOMA350 MG PO (13:46)
[2020-02-06] MEDS ORDERED: LISINOPRIL10 MG PO (13:47)
[2020-02-06] MEDS ORDERED: KLOR-CON M2020 MEQ PO (13:47)
[2020-02-06] MEDS ORDERED: HYDROCHLOROTH12.5 M1 PO (13:47)
[2020-02-06] MEDS ORDERED: ZOFRAN4 MG (13:48)
[2020-02-06] MEDS ORDERED: APRISO0.375 GM PO (13:49)
[2020-02-06 14:21] LABS: ANION GAP 9.4 mmol/L (8-16); CALCIUM 9.3 mg/dL (8.5-10.1); CARBON DIOXIDE 26.4 mmol/L (21.0-32.0); CREATININE - SERUM 0.9 mg/dL (0.6-1.3); POTASSIUM - SERUM 3.8 mmol/L (3.5-5.1)
[2020-02-06 14:27] LABS: ALBUMIN 3.7 g/dL (3.4-5.0); BILIRUBIN - TOTAL 0.14 mg/dL (0.2-1.3); MAGNESIUM - SERUM 1.9 mg/dL (1.8-2.4); PROTEIN - SERUM 7.4 g/dL (6.4-8.2)
[2020-02-06 14:33] LABS: BASOPHILS 0.2 % (0-2); EOSINOPHILS 0.9 % (0-7); HEMATOCRIT 41.3 % (36.0-48.0); HEMOGLOBIN 13.3 g/dL (12-16); IMMATURE GRANULOCYTES 0.2 % (0-5); LYMPHOCYTES 29.7 % (15-50); MCH 29.8 pg (26.0-34.0); MCHC 32.2 g/dL (31.0-37.0); MCV 92.4 fL (80.0-100.0); MEAN PLATELET VOLUME 10.8 fL (7.4-10.4); MONOCYTES 10.3 % (2-11); NEUTROPHILS 58.7 % (40-80); RBC 4.47 10x6/uL (4.00-5.40); RDW 13.7 % (11.5-14.5); WBC 9.2 10x3/uL (4.8-10.8)
[2020-02-06 14:34] LABS: PLATELET COUNT 147 10x3/uL (130-400)
[2020-02-06 16:01] LABS: BILIRUBIN NEGATIVE (NEGATIVE); KETONE NEGATIVE (NEGATIVE); NITRITE NEGATIVE (NEGATIVE); UROBILINOGEN NORMAL mg/dL (< 2)
[2020-02-06 16:02] LABS: UDS - AMPHET NEGATIVE QUAL (NEGATIVE); UDS - BARB NEGATIVE QUAL (NEGATIVE); UDS - BENZO POSITIVE QUAL (NEGATIVE); UDS - COCAINE NEGATIVE QUAL (NEGATIVE); UDS - OPIATE NEGATIVE QUAL (NEGATIVE); UDS - PCP NEGATIVE QUAL (NEGATIVE); UDS - THC NEGATIVE QUAL (NEGATIVE)
[2020-02-06] MEDS ORDERED: KEFLEX500 MG PO (16:18)
[2020-02-06 17:08] VITALS: BP 112/68
== END 2020-02-06 17:09 | disposition home or self-care (01) ==
LOC: D.ER 13:36
PROVIDERS: Family Medicine
DX: G40.909 Epilepsy, unspecified, not intractable, without status epilepticus (principal); S39.012A Strain of muscle, fascia and tendon of lower back, initial encounter; S20.219A Contusion of unspecified front wall of thorax, initial encounter; E86.0 Dehydration; E87.1 Hypo-osmolality and hyponatremia; S41.111A Laceration without foreign body of right upper arm, initial encounter; I10 Essential (primary) hypertension; J44.9 Chronic obstructive pulmonary disease, unspecified; Z72.0 Tobacco use; W19.XXXA Unspecified fall, initial encounter; Y93.9 Activity, unspecified; Y92.9 Unspecified place or not applicable

== ENCOUNTER → 2020-02-11 10:15 | Outpatient (CLI) | payer MEDICARE ==
[2020-02-06 13:43] VITALS: BMI 17.2
[~2020-02-11 10:15] MED LIST changes: +APRISO0.375 GM PO; +HYDROCHLOROTH12.5 M1 PO; +KEFLEX500 MG PO; +KLOR-CON M2020 MEQ PO; +LISINOPRIL10 MG PO; +SOMA350 MG PO; +ZOFRAN4 MG
== END | disposition home or self-care (01) ==
LOC: D.CN 10:00
PROVIDERS: ATTEND Family Medicine
DX: R56.9 Unspecified convulsions (principal)

== ENCOUNTER → 2020-02-21 10:55 | Outpatient (CLI) | payer MEDICARE, MEDICAID ==
[2020-02-06 13:43] VITALS: BMI 17.2
== END | disposition home or self-care (01) ==
LOC: D.MRI 10:55
PROVIDERS: ATTEND Orthopaedic Surgery
DX: M24.9 Joint derangement, unspecified (principal)

== ENCOUNTER 2020-03-09 06:10 | Day surgery (SDC) | payer MEDICARE, MEDICAID ==
[2020-03-06 15:11] LABS: HEMATOCRIT 38.4 % (36.0-48.0); MCH 30.3 pg (26.0-34.0); MCHC 33.9 g/dL (31.0-37.0); MCV 89.5 fL (80.0-100.0); MEAN PLATELET VOLUME 10.4 fL (7.4-10.4); RBC 4.29 10x6/uL (4.00-5.40); RDW 12.9 % (11.5-14.5); WBC 5.7 10x3/uL (4.8-10.8)
[~2020-03-09] VITALS: Ht 162.6 cm; Wt 45.4 kg
--- NOTE | ~2020-03-09 | OP ---
PATIENT NAME: PIETER PORTER MEDICAL RECORD: [id number] :51 [facility] DATE: SURGEON: TONYA DAVILA MD DATE OF OPERATION: 03/09/2020 PREOPERATIVE DIAGNOSES: 1. Left shoulder pain/impingement. 2. Rotator cuff tear. POSTOPERATIVE DIAGNOSES: 1. Left shoulder pain/impingement. 2. Rotator cuff tear. PROCEDURE PERFORMED: Left shoulder scope with subacromial decompression, distal clavicle excision, limited glenohumeral debridement, and mini open rotator cuff repair. INDICATIONS FOR THE PROCEDURE: Ms. Porter is a 64-year-old female with a history of left shoulder pain and impingement. She had a rotator cuff repair years ago, but is starting to have more pain and limited activity recently. MRI showed evidence of recurrent tear. I spoke with the patient about options for conservative versus surgical management. She has elected to proceed with the surgery for operative repair. Risks, benefits, and alternatives of surgery were discussed with the patient and consent was obtained. DESCRIPTION OF PROCEDURE: The patient was met in the holding area where her identity and confirmation of procedure was performed. Left upper extremity was marked. She was taken to the operating room and she was placed supine on the operating table and anesthesia was administered. She was then positioned in the right lateral decubitus position. Extremities were positioned and padded appropriately. Left upper extremity was prepped and draped in a sterile fashion. The patient received preoperative antibiotics and timeout was performed for initiating the case. Left upper extremity was placed in skeletal traction for the procedure. On initiation of the case, subacromial space was infiltrated with 10 mL of 0.25% Marcaine with epinephrine. We then placed our posterior portal, inserted the camera, filled the joint with fluid. We then placed our anterior portal under direct visualization. Diagnostic closure shoulder arthroscopy was then performed. There was significant fraying of the labrum anterior, superior, and posterior. There was chondromalacia at the superior portion of the glenoid as well. Biceps tendon was absent at its attachment superiorly. There was fraying of the anterior cuff fibers, but the posterior fibers appeared intact. Limited glenohumeral debridement was performed. The labrum was debrided as well as the cuff fibers. We then moved to the subacromial space. There were adhesions and thickened bursa in the subacromial space. This was debrided with the shaver. Cautery was used at the undersurface of the acromion and then a bur was used to smooth osteophyte/bone spur off the anterior aspect of the acromion. There was some thickening of the tissues of the distal clavicle as well some irregularity of the distal clavicle. This was debrided and a bur was used to smooth the end of the distal clavicle. Subacromial bursa was debrided around the cuff tear and its insertion at the greater tuberosity. Old sutures were identified from previous cuff repair and bone tunnels. Once we were able to identify the footprint. This area was prepared using cautery followed by a bur. We then proceeded to a mini open procedure. We extended our lateral portal and performed a deltoid split. We were then able to easily visualize the lateral aspect of the greater tuberosity OPERATIVE REPORT [id number] PIETER PORTER and/or rotator cuff tear. There was still some small intact fibers, but the majority of the tear was full thickness. These were released and the footprint was again prepared. We then performed a mini open repair. Two titanium anchors were placed medially. Sutures were then passed through the cuff. They were brought down in the lateral row using the relaxed and suture anchor. This were tightened sequentially to provide reapproximation of those tissues. There was some extra tissue centrally that was debrided with a Bovie and then an all 3-suture Lev anchor was used to tie these dog ear tight pins down. A Thornton and Nephew regenerant graft was then placed over our cuff repair and anchored into place using the tendon and bone anchors. Images were obtained following the cuff repair. The wound was then irrigated thoroughly with saline. Appeared to have good reapproximation of the tissues and repair of our cuff. The deltoid was repaired using a running Vicryl suture. The subcutaneous tissue was closed with Vicryl. Skin was closed with nylon. Sterile dressing was placed. The patient was placed into an abduction sling, turned back over to anesthesia where she was awakened, extubated, and taken to recovery room in stable condition. POSTOPERATIVE PLAN: The patient is going to return home with her family today. She needs to remain in the sling at all time with instructions for no shoulder range of motion. She may come out and perform elbow, wrist and hand range of motion as tolerated. We will see her back in clinic in 2 weeks. ANESTHESIA: General. ESTIMATED BLOOD LOSS: 10 mL. COMPLICATIONS: None. TRANSINT:[id number] Voice Confirmation ID: [id number] DOCUMENT ID: [id number] TONYA DAVILA MD CC: [id number] DICTATION DATE: 03/09/20 1303 MEDICAL IMAGING TECHNOLOGIST: 03/09/[address] [facility] 03/09/20 [place] [id number]
[~2020-03-09 06:10] MED LIST changes: +AMBIEN5 MG PO; +KEPPRA500 MG PO
[2020-03-09 07:18] VITALS: BP 98/54; Ht 162.6 cm; Wt 45.4 kg
--- NOTE | 2020-03-09 07:28 | NUR ---
ACCORDING TO THE SUICIDE RISK ASSESSMENT THE PATIENT RATES LOW AND WILL NOT NEED 1:1 OBSERVATION, PROVIDE A SUICIDE RESOURCE FLYER.
--- NOTE | 2020-03-09 10:51 | NUR ---
PT HAD PRE EXSISTING WOUND OPEN WOUND ON LEFT ELBOW.
--- NOTE | 2020-03-09 10:54 | NUR ---
BOOM SHOULDER GAINES USED TO POSITION SHOULDER 10 POUND WEIGHT USED TO HOLD UP SHOULDER.
--- NOTE | 2020-03-09 15:45 | NUR ---
1440 DC'D IV. CATHETER TIP INTACT. PRESSURE APPLIED UNTIL BLEEDING STOPPED. COBAN WRAPPED AT SITE. 1446 PT UP WITH ASSISTANCE TO BR. PT VOIDED WITHOUT DIFFICULTY. 1525 PT IS DRESSED AND READY TO GO HOME. DISCHARGE INSTRUCTIONS REVIEWED WITH PT. SHE VOICES THAT SHE IS UNDERSTANDING HER INSTRUCTIONS.
== END 2020-03-09 15:30 | disposition home or self-care (01) ==
LOC: D.OPS 06:10
PROVIDERS: Anesthesiology; ATTEND Orthopaedic Surgery
DX: M25.512 Pain in left shoulder (principal); M75.42 Impingement syndrome of left shoulder; M75.102 Unspecified rotator cuff tear or rupture of left shoulder, not specified as traumatic; M19.012 Primary osteoarthritis, left shoulder